=== PATIENT | male | born 1940 | race Caucasian/White ===

== ENCOUNTER → 2016-11-07 10:46 | Outpatient (CLI) | payer MEDICARE, OTHER | END | disposition home or self-care (01) | LOC: D.MRI 10:46 | DX: H53.9 Unspecified visual disturbance (principal); R55 Syncope and collapse; R51 Headache ==

== ENCOUNTER → 2017-02-18 07:27 | Outpatient (CLI) | payer MEDICARE, OTHER | LOC: D.US 07:27 | DX: Z87.891 Personal history of nicotine dependence (principal) ==